=== PATIENT | female | born 1955 | race Caucasian/White ===

== ENCOUNTER 2019-02-16 06:00 | Outpatient (RCR) | payer MEDICARE, MEDICAID, SELFPAY | END 2019-02-24 00:01 | LOC: WPT 06:00 | PROVIDERS: Family Provider Nurse Practitioner Family; Visit Provider Orthopaedic Surgery | DX: Z47.89 Encounter for other orthopedic aftercare (principal) | CPT/HCPCS: 97110 ×4; 97112 ×2; 97163; G0283 ==

== ENCOUNTER 2019-02-27 | Outpatient (RCR) | payer MEDICARE, MEDICAID, SELFPAY | END 2019-03-13 | disposition home or self-care (01) | LOC: WPO | PROVIDERS: Family Provider Nurse Practitioner Family; PCP Nurse Practitioner Family; Visit Provider Nurse Practitioner Family | DX: Z47.89 Encounter for other orthopedic aftercare (principal); Z96.651 Presence of right artificial knee joint | CPT/HCPCS: 97110; 97112 ==

== ENCOUNTER → 2019-04-17 08:37 | Outpatient (BNVA) | payer MEDICARE, MEDICAID, SELFPAY | PROVIDERS: Family Provider Nurse Practitioner Family; PCP Nurse Practitioner Family; Visit Provider Psychiatry & Neurology Psychiatry | DX: F41.1 Generalized anxiety disorder (principal); F33.42 Major depressive disorder, recurrent, in full remission; F17.210 Nicotine dependence, cigarettes, uncomplicated | CPT/HCPCS: 99214 ==

== ENCOUNTER → 2019-06-08 07:40 | Outpatient (BNVA) | payer MEDICARE, MEDICAID, SELFPAY | PROVIDERS: Family Provider Nurse Practitioner Family; PCP Nurse Practitioner Family; Visit Provider Psychiatry & Neurology Psychiatry | DX: F33.42 Major depressive disorder, recurrent, in full remission (principal); F41.1 Generalized anxiety disorder; F17.210 Nicotine dependence, cigarettes, uncomplicated | CPT/HCPCS: 99214 ==

== ENCOUNTER → 2019-06-29 12:21 | Outpatient (BNVA) | payer MEDICARE, MEDICAID, SELFPAY | PROVIDERS: Family Provider Nurse Practitioner Family; PCP Nurse Practitioner Family; Visit Provider Nurse Practitioner Family | DX: I10 Essential (primary) hypertension (principal); E78.2 Mixed hyperlipidemia; R35.0 Frequency of micturition; Z79.899 Other long term (current) drug therapy; R53.83 Other fatigue; E55.9 Vitamin D deficiency, unspecified; J40 Bronchitis, not specified as acute or chronic | CPT/HCPCS: 80053; 80061; 81001; 83036; 84443; 85025 ==

== ENCOUNTER → 2019-07-06 07:36 | Outpatient (BNVA) | payer MEDICARE, MEDICAID, SELFPAY | PROVIDERS: Family Provider Nurse Practitioner Family; PCP Nurse Practitioner Family; Visit Provider Psychiatry & Neurology Psychiatry | DX: F33.42 Major depressive disorder, recurrent, in full remission (principal); F41.1 Generalized anxiety disorder; F17.210 Nicotine dependence, cigarettes, uncomplicated | CPT/HCPCS: 99213 ==

== ENCOUNTER → 2019-09-04 09:03 | Outpatient (BNVA) | payer MEDICARE, MEDICAID, SELFPAY | PROVIDERS: Family Provider Nurse Practitioner Family; PCP Nurse Practitioner Family; Visit Provider Psychiatry & Neurology Psychiatry | DX: F33.42 Major depressive disorder, recurrent, in full remission (principal); F41.1 Generalized anxiety disorder; F17.210 Nicotine dependence, cigarettes, uncomplicated | CPT/HCPCS: 99213 ==

== ENCOUNTER → 2019-09-28 10:16 | Outpatient (BNVA) | payer MEDICARE, MEDICAID, SELFPAY | PROVIDERS: Family Provider Nurse Practitioner Family; PCP Nurse Practitioner Family; Visit Provider Nurse Practitioner Family | DX: E11.9 Type 2 diabetes mellitus without complications (principal); E78.2 Mixed hyperlipidemia; M51.36 Other intervertebral disc degeneration, lumbar region | CPT/HCPCS: 83036 ==

== ENCOUNTER → 2019-09-29 13:37 | Outpatient (BNVA) | payer MEDICARE, MEDICAID, SELFPAY | PROVIDERS: Family Provider Nurse Practitioner Family; PCP Nurse Practitioner Family; Visit Provider Nurse Practitioner Family | DX: M51.36 Other intervertebral disc degeneration, lumbar region (principal) | CPT/HCPCS: 72114 ==

== ENCOUNTER → 2019-09-30 11:11 | Outpatient (BNVA) | payer MEDICARE, MEDICAID, SELFPAY | PROVIDERS: Family Provider Nurse Practitioner Family; PCP Nurse Practitioner Family; Visit Provider Nurse Practitioner Family | DX: M51.36 Other intervertebral disc degeneration, lumbar region (principal); E11.9 Type 2 diabetes mellitus without complications | CPT/HCPCS: 80053 ==

== ENCOUNTER 2019-10-05 14:29 | Outpatient (CLI) | payer MEDICARE, MEDICAID, SELFPAY ==
--- NOTE | 2019-10-05 17:30 | MR_ITS ---
WS: [id number] MRI LUMBAR SPINE NONCONTRAST TECHNIQUE: Sagittal T1, T2 and STIR imaging. Axial T1 and T2 imaging. CLINICAL INFORMATION: M51.36 Other intervertebral disc degeneration, lumbar region COMPARISON: None. FINDINGS: Mild lumbar curve. No acute compression. Degenerative disc disease worse L4-5 with endplate sclerosis . L1-L2: No significant disc bulging. Mild facet arthropathy. Spinal canal and foramen are patent. L2-L3: Mild to moderate facet arthropathy. Spinal canal and foramen are patent. L3-L4: Minimal annular bulging. Slight narrowing of the left subarticular recess. Slight encroachment traversing left L4 nerve root. Mild left foraminal narrowing. Right foramen is patent. Moderate face t arthropathy. L4-L5: Mild disc bulging in combination with facet arthropathy and ligamentum flavum hypertrophy resu lts in mild central canal stenosis. Slight impingement traversing right L5 nerve root. Mild right and no significant left foraminal narrowing. L5-S1: Mild disc bulging with osteophytic ridging. Slight effacement of the ventral thecal sac. Mild right and no significant left foraminal narrowing. Mild to moderate facet arthropathy. Visualized pelvic bony structures: Normal. Paravertebral soft tissues: Normal. MR/MR lumbar spine wo con* [id number] IMPRESSION: 1. Mild lumbar curve. No acute compression. 2. Mild disc bulging L4-5 with mild central canal stenosis and impingement tra versing right L5 nerve root. Mild right foraminal narrowing. Moderate facet art hropathy at this level. 3. Disc bulging L3-4 with slight impingement traversing left L4 nerve root in the subarticular recess. Mild left foraminal narrowing. 4. Mild disc bulging L5-S1 with slight effacement of ventral thecal sac and mi ld right foraminal narrowing. 5. Degenerative disc disease worse L4-5 with endplate sclerosis eccentric to t he right.
== END 2019-10-05 14:30 | disposition home or self-care (01) ==
LOC: RADSHAW 14:35
PROVIDERS: PCP Nurse Practitioner Family; Visit Provider Nurse Practitioner Family
DX: M51.36 Other intervertebral disc degeneration, lumbar region (principal); M51.26 Other intervertebral disc displacement, lumbar region; M51.27 Other intervertebral disc displacement, lumbosacral region
CPT/HCPCS: 72148

== ENCOUNTER 2019-10-12 06:00 | Outpatient (RCR) | payer MEDICARE, MEDICAID, SELFPAY | END 2019-10-26 23:59 | disposition home or self-care (01) | LOC: WPT 06:00 | PROVIDERS: PCP Nurse Practitioner Family; Referring Provider Nurse Practitioner Family; Visit Provider Nurse Practitioner Family | DX: R42 Dizziness and giddiness (principal) | CPT/HCPCS: 97110; 97161 ==

== ENCOUNTER 2019-10-13 06:00 | Outpatient (RCR) | payer MEDICARE, MEDICAID, SELFPAY | END 2019-10-26 23:59 | disposition home or self-care (01) | LOC: WPT 06:00 | PROVIDERS: PCP Nurse Practitioner Family; Referring Provider Nurse Practitioner Family; Visit Provider Nurse Practitioner Family | DX: M51.36 Other intervertebral disc degeneration, lumbar region (principal) | CPT/HCPCS: 97110; 97140; 97162; G0283 ==

== ENCOUNTER 2019-10-27 06:00 | Outpatient (RCR) | payer MEDICARE, MEDICAID, SELFPAY | END 2019-11-25 23:59 | disposition home or self-care (01) | LOC: WPT 06:00 | PROVIDERS: PCP Nurse Practitioner Family; Referring Provider Nurse Practitioner Family; Visit Provider Nurse Practitioner Family | DX: M51.36 Other intervertebral disc degeneration, lumbar region (principal) | CPT/HCPCS: 97110; 97116; G0283 ==

== ENCOUNTER 2019-11-26 06:00 | Outpatient (RCR) | payer MEDICARE, MEDICAID, SELFPAY | END 2019-12-26 23:59 | disposition home or self-care (01) | LOC: WPT 06:00 | PROVIDERS: PCP Nurse Practitioner Family; Referring Provider Nurse Practitioner Family; Visit Provider Nurse Practitioner Family | DX: M51.36 Other intervertebral disc degeneration, lumbar region (principal) | CPT/HCPCS: 97110; 97150; 97164 ==

== ENCOUNTER → 2019-11-30 07:39 | Outpatient (BNVA) | payer MEDICARE, MEDICAID, SELFPAY | PROVIDERS: PCP Nurse Practitioner Family; Visit Provider Psychiatry & Neurology Psychiatry | DX: F33.42 Major depressive disorder, recurrent, in full remission (principal); F41.1 Generalized anxiety disorder; F17.210 Nicotine dependence, cigarettes, uncomplicated | CPT/HCPCS: 99213 ==

== ENCOUNTER → 2020-02-29 07:33 | Outpatient (BNVA) | payer MEDICARE, MEDICAID, SELFPAY | PROVIDERS: PCP Nurse Practitioner Family; Visit Provider Psychiatry & Neurology Psychiatry | DX: F41.1 Generalized anxiety disorder (principal); F17.210 Nicotine dependence, cigarettes, uncomplicated; E78.2 Mixed hyperlipidemia | CPT/HCPCS: 99214 ==

== ENCOUNTER → 2020-03-01 11:00 | Outpatient (BNVA) | payer MEDICARE, MEDICAID, SELFPAY | PROVIDERS: PCP Nurse Practitioner Family; Visit Provider Nurse Practitioner Family | DX: I10 Essential (primary) hypertension (principal); E78.2 Mixed hyperlipidemia; H60.90 Unspecified otitis externa, unspecified ear; R07.89 Other chest pain; J32.9 Chronic sinusitis, unspecified | CPT/HCPCS: 80053; 80061; 85025 ==

== ENCOUNTER → 2020-03-21 08:24 | Outpatient (BNVA) | payer MEDICARE, MEDICAID, SELFPAY | PROVIDERS: PCP Nurse Practitioner Family; Visit Provider Psychiatry & Neurology Psychiatry | DX: F33.42 Major depressive disorder, recurrent, in full remission (principal); F41.1 Generalized anxiety disorder; F17.210 Nicotine dependence, cigarettes, uncomplicated | CPT/HCPCS: 99213 ==

== ENCOUNTER → 2020-05-09 07:33 | Outpatient (BNVA) | payer MEDICARE, MEDICAID, SELFPAY | PROVIDERS: PCP Nurse Practitioner Family; Visit Provider Psychiatry & Neurology Psychiatry | DX: F33.42 Major depressive disorder, recurrent, in full remission (principal); F41.1 Generalized anxiety disorder; F17.210 Nicotine dependence, cigarettes, uncomplicated | CPT/HCPCS: 99214 ==

== ENCOUNTER 2020-06-08 12:23 | Outpatient (CLI) | payer MEDICARE, MEDICAID, SELFPAY ==
--- NOTE | 2020-06-08 13:00 | MM_ITS ---
WS: [id number] DIAGNOSTIC BILATERAL DIGITAL MAMMOGRAM WITH CAD Bilateral breast ultrasound, limited HISTORY: N63.11 - Unspecified lump in the right breast, upper outer quadrant COMPARISON: 10/29/2018 TECHNIQUE: Bilateral craniocaudad, mediolateral oblique, and mediolateral views are submitted. Spot c ompression RIGHT and LEFT CC. Computer aided detection utilized. Breast composition: The breasts are almost entirely fatty. Palpable markers are placed in the upper o uter quadrants of each breast. No underlying mass or distortion. No calcifications. 5 mm benign-appea ring nodule central to the LEFT nipple is been present on prior studies. Bilateral breast ultrasound, limited. Ultrasound directed to the upper-outer quadrants of each breast in the palpable regions. No mass is identified. There is no shadowing or distortion. MM/[place] [id number] IMPRESSION: BI-RADS: 1-Negative FOLLOW UP: 1 Year Follow-up
--- NOTE | 2020-06-08 13:30 | US_ITS ---
WS: [id number] DIAGNOSTIC BILATERAL DIGITAL MAMMOGRAM WITH CAD Bilateral breast ultrasound, limited HISTORY: N63.11 - Unspecified lump in the right breast, upper outer quadrant COMPARISON: 10/29/2018 TECHNIQUE: Bilateral craniocaudad, mediolateral oblique, and mediolateral views are submitted. Spot c ompression RIGHT and LEFT CC. Computer aided detection utilized. Breast composition: The breasts are almost entirely fatty. Palpable markers are placed in the upper o uter quadrants of each breast. No underlying mass or distortion. No calcifications. 5 mm benign-appea ring nodule central to the LEFT nipple is been present on prior studies. Bilateral breast ultrasound, limited. Ultrasound directed to the upper-outer quadrants of each breast in the palpable regions. No mass is identified. There is no shadowing or distortion. US/US breast BI limited* [id number] IMPRESSION: BI-RADS: 1-Negative FOLLOW UP: 1 Year Follow-up
== END 2020-06-08 12:24 | disposition home or self-care (01) ==
PROVIDERS: PCP Nurse Practitioner Family; Visit Provider Nurse Practitioner Family
DX: N63.11 Unspecified lump in the right breast, upper outer quadrant (principal); N63.21 Unspecified lump in the left breast, upper outer quadrant
CPT/HCPCS: 76642; 77066

== ENCOUNTER → 2020-07-04 08:01 | Outpatient (BNVA) | payer MEDICARE, MEDICAID, SELFPAY | PROVIDERS: PCP Nurse Practitioner Family; Visit Provider Psychiatry & Neurology Psychiatry | DX: F33.42 Major depressive disorder, recurrent, in full remission (principal); F41.1 Generalized anxiety disorder; F17.210 Nicotine dependence, cigarettes, uncomplicated | CPT/HCPCS: 99214 ==

== ENCOUNTER → 2020-10-28 12:30 | Outpatient (BNVA) | payer MEDICARE, MEDICAID, SELFPAY | PROVIDERS: PCP Nurse Practitioner Family; Visit Provider Nurse Practitioner Family | DX: E55.9 Vitamin D deficiency, unspecified (principal); E11.9 Type 2 diabetes mellitus without complications | CPT/HCPCS: 82306; 83036 ==

== ENCOUNTER → 2021-01-17 07:28 | Outpatient (BNVA) | payer MEDICARE, MEDICAID, SELFPAY | PROVIDERS: PCP Nurse Practitioner Family; Visit Provider Psychiatry & Neurology Psychiatry | DX: F33.42 Major depressive disorder, recurrent, in full remission (principal); F41.1 Generalized anxiety disorder; F17.210 Nicotine dependence, cigarettes, uncomplicated | CPT/HCPCS: 99214 ==

== ENCOUNTER → 2021-04-12 07:12 | Outpatient (BNVA) | payer MEDICARE, MEDICAID, SELFPAY | PROVIDERS: PCP Nurse Practitioner Family; Visit Provider Psychiatry & Neurology Psychiatry | DX: F33.42 Major depressive disorder, recurrent, in full remission (principal); F41.1 Generalized anxiety disorder; F17.210 Nicotine dependence, cigarettes, uncomplicated | CPT/HCPCS: 99214 ==

== ENCOUNTER → 2021-04-24 00:01 | Outpatient (BNVA) | payer MEDICARE, MEDICAID, SELFPAY | PROVIDERS: PCP Nurse Practitioner Family; Visit Provider Nurse Practitioner Family | DX: E11.9 Type 2 diabetes mellitus without complications (principal); E55.9 Vitamin D deficiency, unspecified; I10 Essential (primary) hypertension; R53.83 Other fatigue; E78.2 Mixed hyperlipidemia | CPT/HCPCS: 80053; 80061; 81003; 82306; 83036; 83880; 84439; 84443; 85025 ==

== ENCOUNTER → 2021-05-17 07:26 | Outpatient (BNVA) | payer MEDICARE, MEDICAID, SELFPAY | PROVIDERS: PCP Nurse Practitioner Family; Visit Provider Psychiatry & Neurology Psychiatry | DX: F33.42 Major depressive disorder, recurrent, in full remission (principal); F41.1 Generalized anxiety disorder; F17.210 Nicotine dependence, cigarettes, uncomplicated | CPT/HCPCS: 99213 ==

== ENCOUNTER → 2021-07-19 12:31 | Outpatient (BNVA) | payer MEDICARE, MEDICAID, SELFPAY | PROVIDERS: PCP Nurse Practitioner Family; Visit Provider Psychiatry & Neurology Psychiatry | DX: F33.42 Major depressive disorder, recurrent, in full remission (principal); F41.1 Generalized anxiety disorder; F17.210 Nicotine dependence, cigarettes, uncomplicated | CPT/HCPCS: 99214 ==

== ENCOUNTER → 2021-09-22 10:47 | Outpatient (BNVA) | payer MEDICARE, MEDICAID, SELFPAY | PROVIDERS: PCP Nurse Practitioner Family; Visit Provider Nurse Practitioner | DX: R51.9 Headache, unspecified (principal) | CPT/HCPCS: 87426 ==

== ENCOUNTER → 2022-03-09 10:25 | Outpatient (BNVA) | payer MEDICARE, MEDICAID, OTHER, SELFPAY | PROVIDERS: PCP Nurse Practitioner Family; Visit Provider Nurse Practitioner Family | DX: E11.9 Type 2 diabetes mellitus without complications (principal); Z79.899 Other long term (current) drug therapy; I10 Essential (primary) hypertension; K21.9 Gastro-esophageal reflux disease without esophagitis | CPT/HCPCS: 80053; 80061; 81000; 85025 ==

== ENCOUNTER → 2022-04-13 08:56 | Outpatient (BNVA) | payer MEDICARE, MEDICAID, SELFPAY | PROVIDERS: PCP Nurse Practitioner Family; Visit Provider Nurse Practitioner Family | DX: E11.9 Type 2 diabetes mellitus without complications (principal) | CPT/HCPCS: 83036 ==

== ENCOUNTER 2023-04-25 06:00 | Outpatient (RCR) | payer MEDICARE, MEDICAID, SELFPAY | END 2023-04-25 23:59 | disposition home or self-care (01) | LOC: WPT 06:00 | PROVIDERS: PCP Nurse Practitioner Family; Visit Provider Nurse Practitioner Family | DX: M54.2 Cervicalgia (principal); G89.29 Other chronic pain | CPT/HCPCS: 97110; 97162 ==

== ENCOUNTER 2023-04-26 06:00 | Outpatient (RCR) | payer MEDICARE, MEDICAID, SELFPAY | END 2023-05-26 23:59 | disposition home or self-care (01) | LOC: WPT 06:00 | PROVIDERS: PCP Nurse Practitioner Family; Visit Provider Nurse Practitioner Family | DX: M54.2 Cervicalgia (principal); G89.29 Other chronic pain | CPT/HCPCS: 97110; 97112; 97530 ==

== ENCOUNTER 2023-05-27 06:00 | Outpatient (RCR) | payer MEDICARE, MEDICAID, SELFPAY | END 2023-06-25 23:59 | disposition home or self-care (01) | LOC: WPT 06:00 | PROVIDERS: PCP Nurse Practitioner Family; Visit Provider Nurse Practitioner Family | DX: M54.2 Cervicalgia (principal); G89.29 Other chronic pain | CPT/HCPCS: 97110; 97112; 97140; 97530 ==

== ENCOUNTER 2023-06-25 14:23 | Observation (INO) | payer MEDICARE, MEDICAID, SELFPAY ==
[2023-06-17 11:28] LABS: Add Urine Microscopic? NO; Charge for UA Resulting for Rev
[2023-06-17 11:31] LABS: Basophils % 0.6 %; Eosinophils # 0.2 10^3/uL (0.0-0.8); Hematocrit 45.4 % (36-47); Lymphocytes % 27.3 %; Mean Corpuscular HGB Conc 32.2 g/dL (30-55); Mean Corpuscular Hemoglobin 29.4 pg (27-33); Mean Corpuscular Volume 91.3 fl (85-98); Mean Platelet Volume 10.7 fL (7.4-10.4); Monocytes # 0.6 10^3/uL (0.2-0.9); Monocytes % 7.8 %; Neutrophils # 4.41 10^3/uL (1.8-7.7); Nucleated Red Blood Cells % 0 %; Platelet Count 186 10^3/cmm (157-399); Red Blood Count 4.97 10^6/uL (3.85-5.65); Red Cell Distribution Width 11.9 % (12.1-15.1); White Blood Count 7.22 10^3/uL (3.29-11.43)
[2023-06-17 11:32] LABS: Bilirubin Urine Neg (Negative); Blood Urine Neg (Negative); Glucose Urine UA Norm (Normal); Ketones Urine Negative (Negative); Leukocyte Esterase Urine Negative (Negative); Nitrate Urine Negative (Negative); Protein Urine Neg (Negative); Urine Appearance Clear (CLEAR); Urine Color Yellow (Yellow); Urobilinogen Urine Norm (Negative); pH Urine 6.5 (5-7)
[2023-06-17 11:47] LABS: Alanine Aminotransferase 21 U/L (0-33); Albumin Level 3.9 g/dL (3.5-5.2); Alkaline Phosphatase 68 U/L (35-105); Anion Gap 11.9 (5-19); Aspartate Amino Transferase 19 U/L (0-32); Blood Urea Nitrogen 21 mg/dL (8-23); Calcium 8.7 mg/dL (8.5-10.5); Carbon Dioxide 29 mmol/L (22-29); Chloride 103 mmol/L (98-107); Globulin 3.1 g/dL (1.3-4.6); Glucose 99 mg/dL (65-115); Osmolality Calculated 293 mOsm/kg (285-295); Potassium 3.9 mmol/L (3.5-5.1); Sodium 140 mmol/L (136-145); Total Bilirubin 0.3 mg/dL (0.15-1.2)
--- NOTE | 2023-06-17 11:53 | P.ANESASSM_ITS ---
Pre-Anesthetic Assessment Height/Weight: Height 1.73 m Operation Date: 06/25/23 14:10 Proposed Procedures p Anterior Repair Anterior Colporrhaphy(Not Applicable) - Varghese Jones MD s Sling(Not Applicable) - Varghese Jones MD Familial anesthetic complications: None Social Tobacco and No alcohol Exam alert, oriented x 3, clear to auscultation bilaterally and regular rate & rhythm Airway Mallampati: Class III Dentition: false Pulmonary denies CHRISTOPHER CV/HEM Coronary Artery Disease (stents over a decade - no chest pains, syncope, SOB) and Hypertension GI Gastroesophageal Reflux Disease Metabolic denies DM Anesthetic Plan ASA status: 3 Anesthesia: General Medications/Allergies Home Medications Medication Instructions Recorded Confirmed Last Taken Type risankizumab-rzaa 75 mg/0.83 mL 75 mg SUBCUT DIRECTED 11/08/22 06/17/23 05/15/23 History subcutaneous syringe citalopram 40 mg tablet See Rx Instructions .Route 02/19/23 06/17/23 06/17/23 Rx .COMPLEX #30 tabs amlodipine 2.5 mg tablet 2.5 mg PO DAILY 90 days #90 tabs 03/28/23 06/17/23 06/17/23 Rx clopidogrel 75 mg tablet See Rx Instructions .Route 03/28/23 06/17/23 06/17/23 Rx .COMPLEX #90 tabs metoprolol tartrate 100 mg tablet See Rx Instructions .Route 03/28/23 06/17/23 06/17/23 Rx .COMPLEX 90 days #180 tabs mirabegron 25 mg tablet,extended 25 mg PO 1XD 03/28/23 06/17/23 06/17/23 History release 24 hr (Myrbetriq) pantoprazole 40 mg tablet,delayed See Rx Instructions .Route 05/16/23 06/17/23 06/17/23 Rx release .COMPLEX #90 tabs rosuvastatin 10 mg tablet 40 mg .Route DAILY 06/13/23 06/17/23 06/17/23 History Allergies Allergy/AdvReac Type Severity Reaction Status Date / Time Penicillins Allergy Unknown hives, itch Verified 06/17/23 08:48 [facility] Anesthesia Medical History Chronic neck pain Fatigue Psychiatric care Cervical spine pain Headache GERD (gastroesophageal reflux disease) Otitis media Otitis externa Sinusitis Chest heaviness Diabetes mellitus, type II Vitamin D deficiency Essential hypertension Mixed hyperlipidemia Generalized anxiety disorder Surgical History S/P bladder repair Family History Grandfather Diabetes Stroke Heart disease Father Hyperlipidemia Heart disease Mother Hypertension Colon cancer Grandmother Stroke Heart disease Uterine cancer Colon cancer Denies family history of Ovarian cancer Clotting disorder Breast cancer Bleeding disorder Social History Smoking and tobacco/nicotine status: never used tobacco/nicotine Alcohol intake: never Substance/Drug Use: never Data Anesthesia 06/17/23 11:15 06/17/23 11:15 Short CBC 06/17/23 Range/Units 11:15 WBC 7.22 (3.29-11.43) 10^3/uL Hgb 14.60 (11.27-16.99) g/dL Hct 45.4 (36-47) % MCV 91.3 (85-98) fl Plt Count 186 (157-399) 10^3/cmm Neut % (Auto) 61.0 % Neut # (Auto) 4.41 (1.8-7.7) 10^3/uL BMP 06/17/23 11:15 Sodium 140 Potassium 3.9 Chloride 103 Carbon Dioxide 29 BUN 21 Creatinine 0.7 Glucose 99 Calcium 8.7 Liver Function 06/17/23 Range/Units 11:15 Total Bilirubin 0.3 (0.15-1.2) mg/dL AST 19 (0-32) U/L ALT 21 (0-33) U/L Alkaline Phosphatase 68 (35-105) U/L Albumin 3.9 (3.5-5.2) g/dL Urine 06/17/23 Range/Units 11:15 Urine Color Yellow (Yellow) Urine Appearance Clear (CLEAR) Urine pH 6.5 (5-7) Ur Specific [place] 1.000 L (1.005-1.030) Urine Protein Neg (Negative) Urine Glucose (UA) Norm (Normal) Urine Ketones Negative (Negative) Urine Nitrate Negative (Negative) Urine Bilirubin Neg (Negative) Ur Leukocyte Esterase Negative (Negative) Cardiac Studies: 2 No Data to Display
[2023-06-25] VITALS (15 sets, daily range): BP systolic 136–181; BP diastolic 67–93; PULSE 53–70; RESP 12–24; TEMP 36.6–37.1; O2SAT 92–97; BMI 48.1
--- NOTE | 2023-06-25 10:44 | P.ANESASSM_ITS ---
Pre-Anesthetic Assessment Height/Weight: Height 1.73 m Operation Date: 06/25/23 13:40 Proposed Procedures p Anterior Repair Anterior Colporrhaphy(Not Applicable) - Varghese Jones MD s Sling(Not Applicable) - Varghese Jones MD Social Tobacco and No alcohol Exam oriented x 3 and regular rate & rhythm Airway Submandibular: within normal limits Cervical ROM: within normal limits Mallampati: Class II CV/HEM Hypertension GI Gastroesophageal Reflux Disease Metabolic Diabetes Mellitus and Hyperlipidemia [facility] [place] Osteoarthritis/DJD Anesthetic Plan ASA status: 3 Anesthesia: General Medications/Allergies Home Medications Medication Instructions Recorded Confirmed Last Taken Type risankizumab-rzaa 75 mg/0.83 mL 75 mg SUBCUT DIRECTED 11/08/22 06/17/23 05/15/23 History subcutaneous syringe citalopram 40 mg tablet See Rx Instructions .Route 02/19/23 06/17/23 06/17/23 Rx .COMPLEX #30 tabs amlodipine 2.5 mg tablet 2.5 mg PO DAILY 90 days #90 tabs 03/28/23 06/17/23 06/17/23 Rx clopidogrel 75 mg tablet See Rx Instructions .Route 03/28/23 06/17/23 06/17/23 Rx .COMPLEX #90 tabs metoprolol tartrate 100 mg tablet See Rx Instructions .Route 03/28/23 06/17/23 06/17/23 Rx .COMPLEX 90 days #180 tabs mirabegron 25 mg tablet,extended 25 mg PO 1XD 03/28/23 06/17/23 06/17/23 History release 24 hr (Myrbetriq) pantoprazole 40 mg tablet,delayed See Rx Instructions .Route 05/16/23 06/17/23 06/17/23 Rx release .COMPLEX #90 tabs rosuvastatin 10 mg tablet 40 mg .Route DAILY 06/13/23 06/17/23 06/17/23 History Allergies Allergy/AdvReac Type Severity Reaction Status Date / Time Penicillins Allergy Unknown hives, itch Verified 06/17/23 08:48 [facility] Anesthesia Medical History Chronic neck pain Fatigue Psychiatric care Cervical spine pain Headache GERD (gastroesophageal reflux disease) Otitis media Otitis externa Sinusitis Chest heaviness Diabetes mellitus, type II Vitamin D deficiency Essential hypertension Mixed hyperlipidemia Generalized anxiety disorder Surgical History S/P bladder repair Family History Grandfather Diabetes Stroke Heart disease Father Hyperlipidemia Heart disease Mother Hypertension Colon cancer Grandmother Stroke Heart disease Uterine cancer Colon cancer Denies family history of Ovarian cancer Clotting disorder Breast cancer Bleeding disorder Social History Smoking and tobacco/nicotine status: never used tobacco/nicotine Alcohol intake: never Substance/Drug Use: never Data Anesthesia 06/17/23 11:15 06/17/23 11:15 Cardiac Studies: 2 No Data to Display
[2023-06-25] MEDS: sodium chloride 0.9% 1,000 ML 30 ML IV (12:30)
[2023-06-25] MEDS: scopolamine 1.5 Patch 1 PATCH TRANSDERMA (12:31)
[2023-06-25] MEDS: sodium chloride 0.9% 500 ML IV (12:31)
[2023-06-25] MEDS: enoxaparin 40 mg/0.4 mL Syringe SUBCUT (12:32)
--- NOTE | 2023-06-25 13:08 | W.PM.OPSUD ---
Surgery/Procedure H&P Update DATE OF PROCEDURE: June 25, 2023 DATE H&P PERFORMED: 06/17/23 H&P UPDATE INFORMATION: I have reviewed H&P completed within last 30 days, I have examined patient prior to procedure and No changes to prior documentation PREOP DIAGNOSIS: cystocele, mix incontinence PLANNED PROCEDURE: Operation Date: 06/25/23 13:40 Proposed Procedures p Anterior Repair Anterior Colporrhaphy(Not Applicable) - Varghese Jones MD s Sling(Not Applicable) - Varghese Jones MD
[2023-06-25] MEDS: levofloxacin-dextrose 5 % 500 MG/100 ML PREMIX 100 MG IV (13:15)
[2023-06-25] MEDS: vancomycin 1,000 MG in sodium chloride 0.9% 250 ML 250 MG IV (13:37)
--- NOTE | 2023-06-25 14:18 | PM.OP ---
Operative Report Date of procedure: June 25, 2023 Pre-op diagnosis: Cystocele stage I Mixed urinary incontinence Post-op diagnosis: same Procedure done: Midurethral sling Implants: Coloplast Altis sling Surgeon: Varghese Jones MD Estimated blood loss (mL): 50 IV fluids (mL): 500 Urine output (mL): 50 Complications: None Procedure: After obtaining informed consent, the patient was taken to the operating room and placed in the supine position, given general anesthesia, and prepped and draped in sterile fashion. The abdomen, vulva and vagina were prepped and draped in a sterile manner. A time out procedure was performed. The anterior vaginal mucosa beneath the midurethra was infiltrated with 0.5% Marcaine with epinephrine. A vertical midline incision was made beneath the midurethra, nearly 1.5 cm length. Careful submucosal dissection was performed bilaterally up to the interior portion of the inferior pubic ramus. The insertion of adductor longus tendon on the patient?s pubic ramus was identified as reference land miriam. Palpated the notch along the internal edge of ischiopubic ramus where the adductor longus tendon and the inferior pubic ramus meet. The Altis single incision sling (SIS) was selected. Then the needle of the SIS inserted aiming at the location of this notch. One of the integrated self-fixating tips place onto the needle by sliding it over the end of the needle. The needle/sling assembly was inserted toward the location of identified reference notch making sure that the flat of the handle is perpendicular to the desired path. The needle was tracked along the posterior surface of the ischiopubic ramus until the midline miriam on the mesh is approximately at the midline position under the urethra. The needle was removed and the same was repeated on the contralateral side until the appropriate sling tension under the urethra was achieved ensuring that the mesh lays flat. The needle was removed and vaginal incision was closed in a running interlocking fashion with 2-0 Vicryl. The small cystocele resolved after the sling placement and the patient did not need the anterior colporrhaphy. Then the Evans catheter was removed and cystoscope was inserted. The bladder was filled with sterile water. Complete evaluation of the bladder mucosa was performed noting no lacerations, dimpling, tears, bleeding of the mucosa or muscular layers. Both ureteral orifices were identified. Prompt excretion of urine from both ureteral orifices was noted. Cystoscope was withdrawn. The Evans catheter was replaced. Excellent hemostasis was obtained. A vaginal pack is placed overnight as postoperative support for the vaginal tissues after graft placement and closure of vaginal incisions. Sponge, lap, needle, and instrument counts were correct times three. The patient was taken to the recovery room, awake and in stable condition.
--- NOTE | 2023-06-25 15:07 | PC.NURSE ---
1450 - Report called to ISABELL Santo RN - notified nurse of vag packing
[2023-06-25] MEDS: dextrose 5%-lactated ringers 1,000 ML 125 ML IV (15:13)
[2023-06-25] MEDS: ketorolac 30 mg/mL INJ IVP ×2 (15:15→22:36)
[2023-06-25] MEDS: HYDROcodone-acetaminophen 5-325 mg Tablet PO (19:48)
[2023-06-26 02:00] VITALS: BP 148/79; PULSE 62; RESP 16
[2023-06-26] MEDS: ketorolac 30 mg/mL INJ IVP (05:34)
[2023-06-26 06:02] LABS: Hematocrit 41.6 % (36-47); Mean Corpuscular HGB Conc 32.5 g/dL (30-55); Mean Corpuscular Hemoglobin 29.6 pg (27-33); Mean Corpuscular Volume 91.2 fl (85-98); Mean Platelet Volume 10.6 fL (7.4-10.4); Platelet Count 180 10^3/cmm (157-399); Red Blood Count 4.56 10^6/uL (3.85-5.65); Red Cell Distribution Width 11.6 % (12.1-15.1); White Blood Count 12.02 10^3/uL (3.29-11.43)
--- NOTE | 2023-06-26 08:45 | P.DS_ITS ---
Discharge Providers ANIMAL CARE ASSISTANT Date of Admission: 06/25/23 14:23 Date of Discharge: 06/26/23 Attending Provider at Admission: Varghese Jones MD Attending Provider at Discharge: Varghese Jones MD Primary Care Provider: Porsche Hu NP Reason for Visit Reason for Visit: N39.46 Hospital Course Hospital Course Mrs. Ruff 67-year-old female with a history of mixed urinary incontinence mild cystocele. Admitted for planned anterior colporrhaphy augmented with allograft and mid urethral sling. After placement of mid urethral sling the need for anterior colporrhaphy was not warranted and only did not meet urethral sling was performed. Overnight postop observation was uneventful. She is afebrile and hemodynamically stable postoperative day 1. Tolerating diet well. Ambulating without difficulty. PVR within normal limits. She was counseled regarding my postop restrictions and weight lifting limitations to 10 pounds. Physical Exam Narrative: GA: Alert and oriented ?3. HEENT: WNL. Heart: Regular rate and rhythm. Lungs: Clear to auscultation bilaterally. Abdomen: Bowel sounds present. 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 Extremities: No edema, no cyanosis, no calves pain. Urinary Catheter Management: Evans: Cath Placed During This Visit: yes, but has since been removed by the nurse Reason for Continuing Indwelling Catheter: Decision to DC Catheter Urinary Catheter Date of Insertion: 06/25/23 Urinary Catheter Time of Insertion: 13:40 Date Urinary Catheter Removed: 06/26/23 Time Urinary Catheter Discontinued: 06:00 History History History 2 Term 2 0 Miscarriages/Ectopic 0 Living Children 2 Discharge Data Studies Completed and Pending Laboratory Results WBC 12.02 10^3/uL (3.29-11.43) H 06/26/23 05:24 RBC 4.56 10^6/uL (3.85-5.65) 06/26/23 05:24 Hgb 13.50 g/dL (11.27-16.99) 06/26/23 05:24 Hct 41.6 % (36-47) 06/26/23 05:24 MCV 91.2 fl (85-98) 06/26/23 05:24 MCH 29.6 pg (27-33) 06/26/23 05:24 MCHC 32.5 g/dL (30-55) 06/26/23 05:24 RDW 11.6 % (12.1-15.1) L 06/26/23 05:24 Plt Count 180 10^3/cmm (157-399) 06/26/23 05:24 MPV 10.6 fL (7.4-10.4) H 06/26/23 05:24 Neut % (Auto) 61.0 % 06/17/23 11:15 Lymph % (Auto) 27.3 % 06/17/23 11:15 Emanuel % (Auto) 7.8 % 06/17/23 11:15 Eos % (Auto) 3.0 % 06/17/23 11:15 Baso % (Auto) 0.6 % 06/17/23 11:15 Neut # (Auto) 4.41 10^3/uL (1.8-7.7) 06/17/23 11:15 Lymph # (Auto) 2.0 10^3/uL (0.8-4.8) 06/17/23 11:15 Emanuel # (Auto) 0.6 10^3/uL (0.2-0.9) 06/17/23 11:15 Eos # (Auto) 0.2 10^3/uL (0.0-0.8) 06/17/23 11:15 Baso # (Auto) 0.0 10^3/uL (0.0-0.1) 06/17/23 11:15 Nucleated RBC % (auto) 0 % 06/17/23 11:15 Nucleated RBCs # 0.0 /100WBC 06/17/23 11:15 Sodium 140 mmol/L (136-145) 06/17/23 11:15 Potassium 3.9 mmol/L (3.5-5.1) 06/17/23 11:15 Chloride 103 mmol/L (98-107) 06/17/23 11:15 Carbon Dioxide 29 mmol/L (22-29) 06/17/23 11:15 Anion Gap 11.9 (5-19) 06/17/23 11:15 BUN 21 mg/dL (8-23) 06/17/23 11:15 Creatinine 0.7 mg/dL (0.5-0.9) 06/17/23 11:15 GFR Calculation 83.0 mL/min (90-130) L 06/17/23 11:15 Glucose 99 mg/dL (65-115) 06/17/23 11:15 Calculated Osmolality 293 mOsm/kg (285-295) 06/17/23 11:15 Calcium 8.7 mg/dL (8.5-10.5) 06/17/23 11:15 Total Bilirubin 0.3 mg/dL (0.15-1.2) 06/17/23 11:15 AST 19 U/L (0-32) 06/17/23 11:15 ALT 21 U/L (0-33) 06/17/23 11:15 Alkaline Phosphatase 68 U/L (35-105) 06/17/23 11:15 Total Protein 7.0 g/dL (6.6-8.7) 06/17/23 11:15 Albumin 3.9 g/dL (3.5-5.2) 06/17/23 11:15 Globulin 3.1 g/dL (1.3-4.6) 06/17/23 11:15 Urine Color Yellow (Yellow) 06/17/23 11:15 Urine Appearance Clear (CLEAR) 06/17/23 11:15 Urine pH 6.5 (5-7) 06/17/23 11:15 Ur Specific [place] 1.000 (1.005-1.030) L 06/17/23 11:15 Urine Protein Neg (Negative) 06/17/23 11:15 Urine Glucose (UA) Norm (Normal) 06/17/23 11:15 Urine Ketones Negative (Negative) 06/17/23 11:15 Urine Blood Neg (Negative) 06/17/23 11:15 Urine Nitrate Negative (Negative) 06/17/23 11:15 Urine Bilirubin Neg (Negative) 06/17/23 11:15 Urine Urobilinogen Norm mg/dL (Negative) 06/17/23 11:15 Ur Leukocyte Esterase Negative (Negative) 06/17/23 11:15 Blood Type A Positive 06/25/23 12:15 Rho(D) Type Rh positive 06/25/23 12:15 Antibody Screen Negative 06/25/23 12:15 Vitals Last Vital Signs Temp 98.1 F 06/25/23 22:30 Pulse 62 06/26/23 02:00 Resp 16 06/26/23 02:00 BP 148/79 06/26/23 02:00 Pulse Ox 95 06/25/23 18:15 O2 Del Method Room Air 06/26/23 02:00 Results Labs OB ([facility]): Blood Type A Positive 06/25/23 Antibody Screen Negative 06/25/23 Hct 41.6 % (36-47) 06/26/23 Hgb 13.50 g/dL (11.27-16.99) 06/26/23 Rho(D) Type Rh positive 06/25/23 Plt Count 180 10^3/cmm (157-399) 06/26/23 TSH 1.16 uIU/mL (0.27-4.20) 04/24/21 Free T4 1.26 ng/dL (0.82-1.77) 04/24/21 Hemoglobin A1c 5.3 % (4.0-6.0) 04/13/22 Discharge Plan Discharge Patient Disposition: Home Condition: Stable Prescriptions: New hydrocodone-acetaminophen 5-325 mg tablet 1 tab PO Q4H PRN (Reason: pain) Qty: 10 0RF acetaminophen 325 mg capsule 325 mg PO Q4H PRN (Reason: fever or postoperative pain) Qty: 60 0RF ibuprofen 800 mg tablet 800 mg PO TID PRN (Reason: pain) Qty: 60 0RF Continued rosuvastatin 10 mg tablet 40 mg .ROUTE DAILY Rx Instructions: 40 mg daily; Myrbetriq 25 mg tablet extended release 24 hr 25 mg PO 1XD amlodipine 2.5 mg tablet 2.5 mg PO DAILY 90 Days Qty: 90 1RF risankizumab-rzaa 75 mg/0.83 mL syringe 75 mg SUBCUT DIRECTED Rx Instructions: once every 3 months citalopram 40 mg tablet 40 mg PO DAILY Rx Instructions: TAKE 1 TABLET BY MOUTH EVERY DAY metoprolol tartrate 100 mg tablet 100 mg PO DAILY Rx Instructions: TAKE ONE TABLET BY MOUTH TWICE DAILY clopidogrel 75 mg tablet 75 mg PO DAILY Rx Instructions: TAKE 1 TABLET BY MOUTH EVERY DAY pantoprazole 40 mg tablet,delayed release (DR/EC) 40 mg PO DAILY Rx Instructions: TAKE 1 TABLET BY MOUTH DAILY Discharge Orders: Discharge Order (Routine); Ordered 06/26/23 Ordered By: Varghese Jones Discharge Diet: Usual diet Discharge Activity: Limit activity as instructed Patient Instructions: Urinary Bladder Suspension (DC), Opioid Safety (DC), Bladder Sling for Women (DC), OB Discharge Report, OB Food/Drug Interaction Guide, Opioid Safety Activity Restrictions/Additional Instructions: 1. Please call [facility] on next working day to make your post-operative appointment in 2 weeks. 2. Please stay home until you come back to the clinic on first post- hospatilization check up. 3. Please follow instructions on your medications CAREFULLY. 4. If you have abdominal incision, do not cover it unless dressing is necessary because of drainage. OK to shower, but avoid bath. Leave steri-strips until they fall off. If they are still on one week after surgery, you may remove them. 5. If you had vaginal surgery or vaginal repair, Dr. Jones may instruct you to take SITZ bath. 6. Yellow, blood tinged odorous vaginal discharge is usually normal after hysterectomy or vaginal surgeries. 7. No SEXUAL INTERCOURSE, tampons, or douches until you are completely released from the post-operative care. 8. Avoid constipation by eating right and maybe using some Metamucil or Milk of Magnesia. 9. All prescription refills are given during the working hours. Please do no wait till it runs out. Call the clinic at [phone] before your medication runs out. The clinic will get in touch with your doctor to prescribe medications if necessary. 10. Please remain within 40 mile radius from our hospital because emergencies do happen now and then during the post-operative period. 11. If you have stairs at home, take one step at a time slowly and minimize the number of trips. It helps to stay in one floor for the next few days. No lifting except what you can lift by one hand until you are released from the post-operative care. 12. Driving is discouraged until you are well healed. It may be 3-4 weeks before you feel strong enough to drive. You should be able to turn and look through the rear window without pain and you should be able to push the brake pedal very hard without pain before you drive. No fast rules, but SAFETY should be your primary concern. DO NOT drive if you are on sedating medications such as narcotics. 13. Call the clinic (during working hours) to make urgent appointment or go to the Emergency room, if any of the following occurs: i. Vaginal bleeding becomes heavy, more than a period. ii. Incision becomes red and sore, or drains pus. iii. Your TEMPERATURE is over 100.4F or you have chill. iv. IV site becomes red and swollen (a little ``knot?? is usually OK) v. Persistent nausea and vomiting vi. Persistent constipation or diarrhea vii. Rash or allergic reaction to medications. Discharge Attestations ANIMAL CARE ASSISTANT Time Spent in Discharge Care*: greater than 30 min Coding Level of Care Code Acute Code for Chg Fwd
[2023-06-26 09:30] VITALS: BP 162/63; PULSE 60; RESP 18; TEMP 37.4
--- NOTE | 2023-06-26 09:50 | PC.NURSE ---
BLADDER SCAN DONE BY DR. PICHARDO ONLY HAD 1ML. DR. PICHARDO IS GOOD WITH HER GOING HOME AT THIS TIME.
[2023-06-26 10:22] VITALS: BP 162/63; PULSE 60; RESP 18; TEMP 37.4
== END 2023-06-26 10:10 | disposition home or self-care (01) ==
LOC: OBGYN 14:24
PROVIDERS: Admitting Provider Obstetrics & Gynecology; PCP Nurse Practitioner Family; Visit Provider Obstetrics & Gynecology
PROC: 0JQC0ZZ Repair Pelvic Region Subcutaneous Tissue and Fascia, Open Approach (ICD-10-PCS; CPT 57240; principal; 2023-06-25 13:30)
PROC: (CPT 57288; 2023-06-25 13:30)
DX: N81.10 Cystocele, unspecified (principal); N39.46 Mixed incontinence; I25.10 Atherosclerotic heart disease of native coronary artery without angina pectoris; Z95.5 Presence of coronary angioplasty implant and graft; I10 Essential (primary) hypertension; K21.9 Gastro-esophageal reflux disease without esophagitis; E78.2 Mixed hyperlipidemia; E11.9 Type 2 diabetes mellitus without complications; F41.1 Generalized anxiety disorder
CPT/HCPCS: 57288; 36415; 80053; 81003; 85025; 85027; 86850; 86900; C1713; G0378; J1100; J1650; J1885; J1956; J2405; J2704; J3010; J3370; J7030; J7040; J7050; J7121

== ENCOUNTER 2024-06-25 06:00 | Outpatient (RCR) | payer MEDICARE, MEDICAID, SELFPAY ==
[2023-11-21 16:07] VITALS: BP 124/78; BMI 46.2
== END 2024-07-25 23:59 | disposition home or self-care (01) ==
LOC: WPT 06:00
PROVIDERS: Visit Provider Nurse Practitioner Family
DX: M54.2 Cervicalgia (principal); G89.29 Other chronic pain
CPT/HCPCS: 97110; 97112; 97116; 97140; 97530

== ENCOUNTER 2024-07-26 05:00 | Outpatient (RCR) | payer MEDICARE, MEDICAID, SELFPAY ==
[2023-11-21 16:07] VITALS: BP 124/78; BMI 46.2
== END 2024-08-24 23:59 | disposition home or self-care (01) ==
LOC: WPT 05:00
PROVIDERS: Visit Provider Nurse Practitioner Family
DX: M54.2 Cervicalgia (principal); G89.29 Other chronic pain
CPT/HCPCS: 97110; 97112; 97140; 97530

== ENCOUNTER 2024-08-25 05:00 | Outpatient (RCR) | payer MEDICARE, MEDICAID, SELFPAY ==
[2023-11-21 16:07] VITALS: BP 124/78; BMI 46.2
== END 2024-09-08 14:00 | disposition home or self-care (01) ==
LOC: WPT 05:00
PROVIDERS: Visit Provider Nurse Practitioner Family
DX: M54.2 Cervicalgia (principal); G89.29 Other chronic pain
CPT/HCPCS: 97110; 97112; 97140; 97530

== ENCOUNTER 2025-01-18 16:06 | Outpatient (RCR) | payer MEDICARE, MEDICAID, SELFPAY ==
[2023-11-21 16:07] VITALS: BP 124/78; BMI 46.2
== END 2025-01-24 23:59 | disposition home or self-care (01) ==
LOC: WPT 16:06
PROVIDERS: Visit Provider Nurse Practitioner Family
DX: M54.50 Low back pain, unspecified (principal); G89.29 Other chronic pain
CPT/HCPCS: 97110; 97112; 97530

== ENCOUNTER 2025-02-22 15:42 | Outpatient (RCR) | payer MEDICARE, MEDICAID, SELFPAY ==
[2023-11-21 16:07] VITALS: BP 124/78; BMI 46.2
== END 2025-02-24 23:59 | disposition home or self-care (01) ==
LOC: WPT 15:42
PROVIDERS: Visit Provider Nurse Practitioner Family
DX: M54.50 Low back pain, unspecified (principal); G89.29 Other chronic pain
CPT/HCPCS: 97110; 97112; 97530